=== PATIENT | male | born 1945 | race Caucasian/White ===

== ENCOUNTER → 2017-02-19 | Outpatient (CLI) | payer MEDICARE, OTHER ==
[~2017-02-19] VITALS: Ht 175.3 cm; Wt 126.6 kg
[~2017-02-19] MED LIST: AMLO5TAB5 PO; ASPI-875 PO; ASPI-999 PO; ATOR20TA66 PO; BISO1TAB41 PO; CALC-656 PO; CALC-694 PO; CATHETER FLUSH 10 ML SYR IV PRN; CETI10TA17 PO; CIALIS 20 MG PO; CIPR500T78 PO; CLOP75TA69 PO; CLPD75T PO; FINA5TAB PO; FISH1CAP15 PO; GLUC-113 PO; GLYB2.5T4 PO; HYDR-3454 PO; LISI40TA PO; LSNP20T PO; MULT-974 PO; NIAC1TBM5 PO; OMEG1CAP51 PO; PHEN200T27 PO; REGADENOSON 0.4 MG/5 ML SYR (LEXISCAN) IV ONE; SITA1TBM7 PO; TAMS0.4C9 PO; VIT1CAPS5 PO
[2017-02-19 13:14] VITALS: BP 170/77
[2017-02-19 13:23] VITALS: BP 156/77
[2017-02-19 13:28] VITALS: BP 150/57
[2017-02-19 13:30] VITALS: BP 167/69
[2017-02-19 13:32] VITALS: BP 166/70
--- NOTE | 2017-02-19 21:06 | STRESS TEST ---
DATE OF SERVICE: 02/19/2017 DATE OF SERVICE: 02/19/2017. ORDERING PHYSICIAN: Dr. Peña. PRIMARY CARE PHYSICIAN: Dr. Puente. CLINICAL DIAGNOSIS: Coronary artery disease, hypertension, hyperlipidemia. Baseline images were carried out after injection of 10.71 mCi of technetium-99m Tetrofosmin. This was followed by 0.4 mg regadenoson and 31.2 mCi technetium-99m Tetrofosmin for stress imaging. The electrocardiogram showed sinus rhythm and the electrocardiogram did not change significantly with regadenoson infusion. The patient reported mild shortness of breath with regadenoson which resolved in a few minutes. Review of images at rest and following stress indicates a small apical perfusion defect that is transient. Gated images show normal global left ventricular systolic function with normal regional wall motion. Left ventricular ejection fraction is calculated to be 69%. Left ventricular end-diastolic volume is 80 mL. TID is absent (1.02). CONCLUSIONS: 1. This study indicates a small amount of apical ischemia. 2. No evidence of myocardial infarction. 3. Normal regional wall motion with a calculated ejection fraction of 69%. Job ID: [id number] DocumentID: [id number] Dictated Date: 02/19/2017 15:42:13 Contact Acid Plant Operator Date: 02/19/2017 16:07:34 Dictated By: LIZ PEÑA MD, MA, FACP, FACC,
== END ==
LOC: CARD 11:46
PROVIDERS: ATTEND Internal Medicine Cardiovascular Disease
DX: I25.10 Atherosclerotic heart disease of native coronary artery without angina pectoris (principal); I10 Essential (primary) hypertension; E78.4 Other hyperlipidemia; I65.23 Occlusion and stenosis of bilateral carotid arteries
CPT/HCPCS: 78452; 93017

== ENCOUNTER 2017-02-26 07:56 | Day surgery (SDC) | payer MEDICARE, OTHER ==
[~2017-02-26] VITALS: Ht 175.3 cm; Wt 122.5 kg
[2017-02-26] VITALS (10 sets, daily range): BP systolic 96–177; BP diastolic 44–76
[~2017-02-26 07:56] MED LIST changes: -CATHETER FLUSH 10 ML SYR IV PRN; -REGADENOSON 0.4 MG/5 ML SYR (LEXISCAN) IV ONE
[2017-02-26] MEDS ORDERED: LIDOCAINE 1% INJ 20 ML (XYLOCAINE) VIAL ONE (08:01)
[2017-02-26] MEDS ORDERED: HEParin (CATH LAB) 2,000 ML IV ONE (08:01)
[2017-02-26] MEDS ORDERED: NS IV 1000 ML 1,000 ML ONE (08:01)
[2017-02-26] MEDS ORDERED: NS IV 1000 ML 1,000 ML IV SCH ×2 (08:12→11:35)
[2017-02-26 08:35] LABS: MEAN PLATELET VOLUME 10.1 FL (7.4-10.4); RED BLOOD COUNT 4.99 10^6/uL (4.35-5.85); RED CELL DISTRIBUTION WIDTH 13.3 % (10.0-14.5); WHITE BLOOD COUNT 8.1 10^3/uL (4.3-11.0)
[2017-02-26 08:59] LABS: ALBUMIN 4.3 G/DL (3.2-4.5); CALCIUM 9.8 MG/DL (8.5-10.1); CREATININE SERUM 1.22 MG/DL (0.60-1.30); POTASSIUM 3.6 MMOL/L (3.6-5.0)
[2017-02-26] MEDS ORDERED: GLUC1TAB20 PO (09:17)
[2017-02-26] MEDS ORDERED: ASPI-983 PO (09:17)
[2017-02-26] MEDS ORDERED: OMEG-109 PO (09:17)
[2017-02-26] MEDS ORDERED: METF500T4 PO (09:17)
[2017-02-26] MEDS ORDERED: MULT-851 PO (09:17)
[2017-02-26] MEDS ORDERED: [UNRECOGNIZED DRUG - CODE] PO (09:17)
[2017-02-26] MEDS ORDERED: GLIM4TAB PO (09:17)
[2017-02-26] MEDS ORDERED: CLOP75TA28 PO (09:17)
[2017-02-26 09:20] LABS: PROTHROMBIN TIME PATIENT 13.3 SEC (12.2-14.7)
[2017-02-26] MEDS ORDERED: fentaNYL INJECTION 100 MCG/2 ML AMP ONE (10:30)
[2017-02-26] MEDS ORDERED: MIDAZOLAM 5 MG/5 ML (VERSED) VIAL ONE (10:30)
[2017-02-26] MEDS ORDERED: diphenhydrAMINE 50 MG/ML INJ (BENADRYL) ONE (10:31)
--- NOTE | 2017-02-26 11:35 | Cardiac Procedure Note-CS/ASA ---
Pre-Procedure Note Pre-Op Procedure Note H&P Reviewed The H&P was reviewed, patient examined and no changes noted. Date H&P Reviewed: February 26, 2017 Time H&P Reviewed: 11:00 Conscious Sedation Pre-Proced Time Reviewed: 11:00 ASA Class: 3 Airway Mallampati Classification: (chitimacha appropriate class) I. II. III, IV Lungs Heart ASA score ASA 1: a normal healthy patient ASA 2: a patient with a mild systemic disease (mid diabetes, controlled hypertension, obesity ASA 3: a patient with a severe systemic disease that limits activity (angina , COPD, prior Myocardial infarction) ASA 4: a patient with an incapacitating disease that is a constant threat to life (CHF, renal failure) ASA 5: a moribund patient not expected to survive 24 hrs. (ruptured aneurysm) ASA 6: a declared brain patient whose organs are being harvested. For emergent operations, add the letter E after the classification Grade 2 Sedation Plan: Analgesia, Amnesia, Plan communicated to team members, Discussed options with patient/fam, Discussed risks with patient/fam Note The patient is an appropriate candidate to undergo the planned procedure, sedation, and anesthesia. The patient immediately re-assessed prior to indication. LIZ SMITH MD FACP FAC CCDS February 26, 2017 11:35
--- NOTE | 2017-02-26 11:38 | Discharge Inst-Post CATH ---
Discharge Inst-CATH Post Cardiac Cath D/C Inst Follow Up/Plan F/u with Dr Peña in 2 weeks CARDIAC CATH DISCHARGE INSTRUCTIONS *Hold Metformin for 48 hours post heart cath. ACTIVITY * Go Home directly and rest. * Limit activity of the leg (or wrist if it was used) for 7 days including aerobics, swimming, jogging, bicycling, etc. * Restrict stair-climbing for 7 days if possible, if not, climb up with your non -cath leg, then bring together on the same step. * Avoid lifting, pushing, pulling or excessive movement of the affected extremity for 7 days. * Customary sexual activity may be resumed after 2 days-use caution not to use a position that strains or causes pain to the affected extremity. * No driving for 24 hours. * NO SMOKING. * Avoid straining for bowel movements for 7 days. * Gentle walking on level ground is allowed. * Returning to work will depend on the type of procedure and the results. Your doctor will discuss this with you. CALL YOUR DOCTOR FOR ANY OF THE FOLLOWING: *If bleeding from the puncture site occurs- Apply gentle pressure to site with clean cloth and call your doctor or EMS. * If a knot or lump forms under the skin, increases in size, or causes pain. * If bruising appears to be worsening or moving further down your leg instead of disappearing. * Temperature above 101 F. CARE OF YOUR GROIN INCISION; * Bruising or purple discoloration of the skin near the puncture site is common. * You may shower only, no bathtub bathing for 5 days. Be careful to avoid slipping as your leg may feel stiff. * If a closure device was used on your femoral artery, please see the attached guide regarding care of the device and your leg. * REMOVE the dressing from your groin the next day after your procedure in the shower. CARE OF YOUR WRIST INCISION; * Bruising or purple discoloration of the skin near the puncture site is common. * You may shower. * DO NOT submerge wrist. * Remove dressing in 24 hours. LIZ EPÑA MD FACP [facility] CCDS February 26, 2017 11:38
--- NOTE | 2017-02-26 11:40 | Discharge Inst-Cardiology ---
Discharge Inst-Cardiac Discharge Medications Continued Medications: Amlodipine Besylate (Norvasc) 5 Mg Tablet 5 MG PO DAILY Aspirin (Aspirin EC) 81 Mg Tablet.dr 81 MG PO DAILY, TAB Atorvastatin (Lipitor Tablet) 20 Mg Tablet 20 MG PO HS, TAB Bisoprol/Hydrochlorothiazide (Ziac 10-6.25 Mg Tablet) 1 Tab Tablet 1 TAB PO DAILY Calcium Carbonate/Vitamin D3 (Calcium 600-Vit D3 800 Tab) 1 Each Tablet 1 TAB PO DAILY, TAB Clopidogrel Bisulfate (Clopidogrel) 75 Mg Tablet 75 MG PO HS, TAB Finasteride (Finasteride) 5 Mg Tablet 5 MG PO DAILY, TAB Glimepiride (Glimepiride) 4 Mg Tablet 4 MG PO DAILY, TAB Gluc Roper/Chondro Roper A/Vit C/Mn (Glucosamine Chondroitin Tab) 1 Each Tablet 1 TAB PO DAILY, TAB Lisinopril (Prinivil) 40 Mg Tablet 40 MG PO DAILY Multivits-Minerals/FA/Lycopene (One Daily For Men Tablet) 1 Each Tablet 1 TAB PO DAILY, TAB Belle-3 Fatty Acids/Fish Oil (Fish Oil 1,200 mg Softgel) 1 Each Capsule 1200 MG PO DAILY, CAP Tamsulosin HCl (Flomax) 0.4 Mg Cap.er.24h 0.4 MG PO HS, CAP Vit A/Vit C/Vit E/Zinc/Copper (Preservision Areds Softgel) 1 Each Capsule 1 CAP PO DAILY, CAP Discontinued Medications: Metformin HCl (Metformin HCl) 500 Mg Tablet 500 MG PO DAILY, TAB Patient Instructions Patient Instructions: Resume METFORMIN in the previous home dose on the evening of 02/28/17 LIZ SMITH MD FACP FAC CCDS February 26, 2017 11:40
[2017-02-26] MEDS ORDERED: PATIENT MAY USE OWN MEDS, ALL PO SCH (11:45)
--- NOTE | 2017-02-27 04:19 | CARDIAC CATHETERIZATION ---
DATE OF SERVICE: 02/26/2017 CARDIAC CATHETERIZATION The patient is a 72-year-old gentleman who is known to have coronary artery disease and he has had coronary stenting in 2013. He recently had a myocardial perfusion imaging study that was indicative of apical ischemia. Cardiac catheterization was carried out after having obtained an informed consent. PROCEDURE: He was brought to the cardiac catheterization laboratory in the fasting state. Right groin was prepared and draped in the usual sterile fashion. 1% lidocaine was used for local anesthesia. Modified Seldinger technique was used to advance a 5-Palauan sheath into the right femoral artery. Angiography of the right femoral artery was carried out through a sheath. A 5-Palauan JL4 catheter for left coronary angiography, a 5-Palauan JR4 catheter was used for right coronary angiography. A 5-Palauan pigtail catheter was used for left heart catheterization. A left ventricular angiography was not performed to conserve dye to reduce chances of contrast nephropathy. The pigtail catheter was then pulled back and removed. Mynx was used to achieve hemostasis. He tolerated the procedure well. HEMODYNAMICS: Left ventricular end-diastolic pressure following coronary angiography was 11 mmHg. There was approximately 15 mmHg pressure gradient on pullback across the aortic valve. The ascending aortic pressure is 134/45 with a mean of 71 mmHg. LEFT VENTRICULAR ANGIOGRAPHY: Left ventricular angiography was not performed to conserve dye. CORONARY ANGIOGRAPHY: Left main coronary system does not exhibit significant disease. The left anterior descending artery has mild plaques. A ramus intermedius artery has a widely patent stent in its proximal portion without stent restenosis. Left circumflex artery is small and nondominant and does not have significant disease. Right coronary artery is dominant and has a widely patent stent in its proximal portion without any in stent restenosis. The posterior descending branch of the right coronary artery has approximately 50% ostial stenosis. CONCLUSIONS: 1. Coronary artery disease, relatively mild to moderate, as detailed above. There are patent stents in the right coronary and ramus intermedius arteries. The right coronary stent is Promus Element 2.75 x 32 mm placed in 11/2013. The ramus intermedius stent is Promus Element 2.25 x 16 mm placed in 11/2013. The posterior descending branch of the right coronary artery has approximately 50% ostial stenosis. The rest of the coronaries have mild diffuse plaque. 2. Normal left ventricular end-diastolic pressure. DISCUSSION AND RECOMMENDATIONS: Based on the results of the study, I think it is appropriate to continue a conservative regimen. Risk factor modification has been reviewed. Outpatient follow up is advised. Job ID: [id number] DocumentID: [id number] Dictated Date: 02/26/2017 11:30:06 Broth Mixer Date: 02/26/2017 17:40:02 Dictated By: LIZ SMITH MD, MA, FACP, FACC, MTDD
== END 2017-02-26 15:47 | disposition home or self-care (01) ==
LOC: CATH 07:56
PROVIDERS: ATTEND Internal Medicine Cardiovascular Disease
DX: R94.39 Abnormal result of other cardiovascular function study (principal); I25.10 Atherosclerotic heart disease of native coronary artery without angina pectoris; E11.9 Type 2 diabetes mellitus without complications; E78.5 Hyperlipidemia, unspecified; I10 Essential (primary) hypertension; E66.9 Obesity, unspecified; Z68.39 Body mass index [BMI] 39.0-39.9, adult; Z79.84 Long term (current) use of oral hypoglycemic drugs; Z95.5 Presence of coronary angioplasty implant and graft; Z79.899 Other long term (current) drug therapy
CPT/HCPCS: 36415; 80053; 80061; 85027; 85610; 85730; 87081; 93458

== ENCOUNTER 2018-05-02 17:00 | Outpatient (RCR) | payer MEDICARE, OTHER ==
[~2018-05-02 17:00] MED LIST changes: +ASPI-983 PO; +CLOP75TA28 PO; +GLIM4TAB PO; +GLUC1TAB20 PO; +METF500T5 PO; +MULT-851 PO; +OMEG-109 PO; +[UNRECOGNIZED DRUG - CODE] PO
== END 2018-05-07 | disposition home or self-care (01) ==
LOC: CR3 17:00
PROVIDERS: ATTEND Internal Medicine Cardiovascular Disease
DX: Z29.8 Encounter for other specified prophylactic measures (principal)

== ENCOUNTER → 2018-07-09 | Outpatient (RCR) | payer MEDICARE, OTHER ==
[~2018-07-09] MED LIST changes: +METF-397 PO; -METF500T5 PO
== END | disposition home or self-care (01) ==
LOC: CR3 06-09 13:00
PROVIDERS: ATTEND Internal Medicine Cardiovascular Disease
DX: Z29.8 Encounter for other specified prophylactic measures (principal)

== ENCOUNTER 2018-08-08 13:12 | Outpatient (RCR) | payer MEDICARE, OTHER | END 2018-08-09 | disposition home or self-care (01) | LOC: CR3 13:12 | PROVIDERS: ATTEND Internal Medicine Cardiovascular Disease | DX: Z29.8 Encounter for other specified prophylactic measures (principal) ==

== ENCOUNTER 2018-09-10 15:22 | Outpatient (RCR) | payer MEDICARE, OTHER | END 2018-09-11 | disposition home or self-care (01) | LOC: CR3 15:22 | PROVIDERS: ATTEND Internal Medicine Cardiovascular Disease | DX: Z29.8 Encounter for other specified prophylactic measures (principal) ==

== ENCOUNTER 2018-10-10 15:26 | Outpatient (RCR) | payer MEDICARE, OTHER | END 2018-10-12 | disposition home or self-care (01) | LOC: CR3 15:26 | PROVIDERS: ATTEND Internal Medicine Cardiovascular Disease | DX: Z29.8 Encounter for other specified prophylactic measures (principal) ==

== ENCOUNTER → 2018-11-14 | Outpatient (RCR) | payer MEDICARE, OTHER | END | disposition home or self-care (01) | LOC: CR3 10-15 13:00 | PROVIDERS: ATTEND Internal Medicine Cardiovascular Disease | DX: Z29.8 Encounter for other specified prophylactic measures (principal) ==

== ENCOUNTER → 2018-12-17 | Outpatient (RCR) | payer MEDICARE, OTHER ==
[~2018-12-17] MED LIST changes: -HYDR-3454 PO; +HYDR-3455 PO
== END | disposition home or self-care (01) ==
LOC: CR3 11-17 13:00
PROVIDERS: ATTEND Internal Medicine Cardiovascular Disease
DX: Z29.8 Encounter for other specified prophylactic measures (principal)

== ENCOUNTER 2019-01-16 13:18 | Outpatient (RCR) | payer MEDICARE, OTHER | END 2019-01-17 | disposition home or self-care (01) | LOC: CR3 13:18 | PROVIDERS: ATTEND Internal Medicine Cardiovascular Disease | DX: Z29.8 Encounter for other specified prophylactic measures (principal) ==

== ENCOUNTER → 2019-02-18 | Outpatient (RCR) | payer MEDICARE, OTHER | END | disposition home or self-care (01) | LOC: CR3 01-19 13:00 | PROVIDERS: ATTEND Internal Medicine Cardiovascular Disease | DX: Z29.8 Encounter for other specified prophylactic measures (principal) ==

== ENCOUNTER 2019-03-19 06:00 | Outpatient (RCR) | payer MEDICARE, OTHER | END 2019-03-21 | disposition home or self-care (01) | LOC: CR3 06:00 | PROVIDERS: ATTEND Internal Medicine Cardiovascular Disease | DX: Z29.8 Encounter for other specified prophylactic measures (principal) ==

== ENCOUNTER 2019-05-06 13:19 | Outpatient (RCR) | payer MEDICARE, OTHER | END 2019-05-07 | disposition home or self-care (01) | LOC: CR3 13:19 | PROVIDERS: ATTEND Internal Medicine Cardiovascular Disease | DX: Z29.8 Encounter for other specified prophylactic measures (principal) ==

== ENCOUNTER 2019-06-05 14:43 | Outpatient (RCR) | payer MEDICARE, OTHER | END 2019-06-06 | disposition home or self-care (01) | LOC: CR3 14:43 | PROVIDERS: ATTEND Internal Medicine Cardiovascular Disease | DX: Z29.8 Encounter for other specified prophylactic measures (principal) ==

== ENCOUNTER 2019-07-10 14:19 | Outpatient (RCR) | payer MEDICARE, OTHER | END 2019-07-12 | disposition home or self-care (01) | LOC: CR3 14:19 | PROVIDERS: ATTEND Internal Medicine Cardiovascular Disease | DX: Z29.8 Encounter for other specified prophylactic measures (principal) ==

== ENCOUNTER 2019-07-22 15:02 | Outpatient (RCR) | payer MEDICARE, OTHER | END 2019-08-12 | disposition home or self-care (01) | LOC: CR3 15:02 | PROVIDERS: ATTEND Internal Medicine Cardiovascular Disease | DX: Z29.8 Encounter for other specified prophylactic measures (principal) ==

== ENCOUNTER 2019-09-18 13:16 | Outpatient (RCR) | payer MEDICARE, OTHER ==
[~2019-09-18 13:16] MED LIST changes: -GLIM4TAB PO; +GLIM4TAB3 PO
== END 2019-09-20 | disposition home or self-care (01) ==
LOC: CR3 13:16
PROVIDERS: ATTEND Internal Medicine Cardiovascular Disease
DX: Z29.8 Encounter for other specified prophylactic measures (principal)

== ENCOUNTER → 2019-10-21 | Outpatient (RCR) | payer MEDICARE, OTHER ==
[~2019-10-21] MED LIST changes: +GLIM4TAB PO; -GLIM4TAB3 PO
== END | disposition home or self-care (01) ==
LOC: CR3 09-21 14:00
PROVIDERS: ATTEND Internal Medicine Cardiovascular Disease
DX: Z29.8 Encounter for other specified prophylactic measures (principal)

== ENCOUNTER 2019-11-20 15:50 | Outpatient (RCR) | payer MEDICARE, OTHER ==
[~2019-11-20 15:50] MED LIST changes: -GLIM4TAB PO; +GLIM4TAB3 PO
== END 2019-11-22 | disposition home or self-care (01) ==
LOC: CR3 15:50
PROVIDERS: ATTEND Internal Medicine Cardiovascular Disease
DX: Z29.8 Encounter for other specified prophylactic measures (principal)

== ENCOUNTER → 2019-12-25 | Outpatient (RCR) | payer MEDICARE, OTHER ==
[~2019-12-25] MED LIST changes: -GLIM4TAB3 PO; +GLIM4TAB5 PO
== END | disposition home or self-care (01) ==
LOC: CR3 11-25 14:00
PROVIDERS: ATTEND Internal Medicine Cardiovascular Disease
DX: Z29.8 Encounter for other specified prophylactic measures (principal)

== ENCOUNTER → 2020-04-05 | Outpatient (CLI) | payer MEDICARE, OTHER ==
[~2020-04-05] VITALS: Ht 175 cm; Wt 127.0 kg
[~2020-04-05] MED LIST changes: +CATHETER FLUSH 10 ML SYR IV PRN; +REGADENOSON 0.4 MG/5 ML SYR (LEXISCAN) IV ONE
[2020-04-05 08:53] VITALS: BP 174/62
[2020-04-05 08:56] VITALS: BP 198/53
--- NOTE | 2020-04-05 15:14 | STRESS TEST ---
DATE OF SERVICE: 04/05/2020 RESTING AND POST REGADENOSON TECHNETIUM-99M TETROFOSMIN SPECT CT IMAGING CLINICAL DIAGNOSES: Coronary artery disease, diabetes mellitus, hyperlipidemia, hypertension. Baseline images were carried out after injection of 10.44 mCi of technetium-99m Tetrofosmin. This was followed by 0.4 mg regadenoson and 30.4 mCi of technetium-99m Tetrofosmin for stress imaging. The electrocardiogram showed sinus rhythm at baseline. The electrocardiogram did not change significantly with regadenoson infusion. The patient noted shortness of breath, which resolved in a few minutes after the completion of regadenoson. Review of images at rest and following stress indicates a relatively small inferolateral perfusion defect that appears to be mostly transient. Gated images show normal global left ventricular systolic function with normal regional wall motion. Left ventricular ejection fraction is calculated to be 79%. CONCLUSIONS: 1. This study is suggestive of a small amount of inferolateral ischemia. 2. Normal regional wall motion. 3. Normal global left ventricular systolic function with a calculated ejection fraction of 79%. Job ID: [id number] DocumentID: [id number] Dictated Date: 04/05/2020 15:03:05 Erp Engineer Date: 04/05/2020 15:13:48 Dictated By: LIZ SMITH MD, MA, FACP, FACC,
== END ==
LOC: CARD 07:07
PROVIDERS: ATTEND Internal Medicine Cardiovascular Disease
DX: I25.10 Atherosclerotic heart disease of native coronary artery without angina pectoris (principal); I65.29 Occlusion and stenosis of unspecified carotid artery; E11.9 Type 2 diabetes mellitus without complications; E78.5 Hyperlipidemia, unspecified; I10 Essential (primary) hypertension; M54.5 Low back pain; E66.9 Obesity, unspecified
CPT/HCPCS: 78452; 93017; A9502

== ENCOUNTER → 2020-09-30 | Outpatient (CLI) | payer MEDICARE, OTHER ==
[~2020-09-30] MED LIST changes: +ASPI-1238 PO; -ASPI-983 PO; -CATHETER FLUSH 10 ML SYR IV PRN; -REGADENOSON 0.4 MG/5 ML SYR (LEXISCAN) IV ONE
--- NOTE | 2020-09-30 14:24 | Diagnostic Imaging Report ---
INDICATION: Left breast lump. No prior studies are available for comparison. Unilateral left 2-D and 3-D diagnostic mammography was performed with CAD. There is a lobulated masslike density in the retroareolar left breast. No malignant appearing microcalcifications are seen. Axilla is unremarkable. IMPRESSION: BI-RADS 0 Retroareolar left breast mass. Further evaluation with ultrasound is recommended and will be performed today. ACR BI-RADS Category 0: Incomplete. (Needs additional imaging evaluation). Result letter will be mailed to the patient. Note: At least 10% of breast cancer is not imaged by mammography. Dictated by: Dictated on workstation # [id number]
--- NOTE | 2020-09-30 20:03 | Diagnostic Imaging Report ---
INDICATION: Palpable lump left breast. EXAMINATION: Sonographic interrogation of retroareolar left breast. FINDINGS: Irregular, hypoechoic solid-appearing mass, measuring 1.7 x 1.5 x 1.3 cm. This does show internal vascularity. There is a fatty replaced lymph node in the left axilla, measuring 2.5 x 1.6 cm. No other mass is seen. IMPRESSION: Solid ill-defined hypoechoic mass in retroareolar left breast at the area of palpable abnormality. This is concerning for a breast neoplasm. Tissue sampling is recommended. This would be amenable to ultrasound-guided core biopsy. ACR BI-RADS Category 4: Suspicious abnormality. Result letter will be mailed to the patient. Note: At least 10% of breast cancer is not imaged by mammography. Dictated by: Dictated on workstation # [id number]
== END ==
PROVIDERS: ATTEND Family Medicine
DX: N63.20 Unspecified lump in the left breast, unspecified quadrant (principal)
CPT/HCPCS: 76642; 77065; G0279

== ENCOUNTER → 2020-10-05 | Outpatient (CLI) | payer MEDICARE, OTHER ==
[~2020-10-05] VITALS: Ht 175.3 cm; Wt 118.2 kg
[~2020-10-05] MED LIST changes: +LIDOCAINE 1% INJ 20 ML 20 ML VIAL INJ ONE
--- NOTE | 2020-10-05 11:13 | Diagnostic Imaging Report ---
INDICATION: Left breast mass. Patient presents for ultrasound-guided biopsy. DETAILS OF THE PROCEDURE: The patient was brought to the sonographic suite and placed on the table in the supine position. Ultrasound imaging of the left breast was performed to evaluate for an appropriate entry site. The left breast was then prepped and draped in the usual sterile fashion. A small amount of 1% lidocaine was utilized for local anesthesia. A total of three passes was made into the irregular hypoechoic mass in the retroareolar left breast utilizing 14-gauge Achieve needles. Core biopsies were obtained. Next, a marker clip was deployed within the mass. Hemostasis was obtained using manual compression. The patient tolerated the procedure well and left the Department in stable condition. IMPRESSION: Successful ultrasound guided core biopsy of the solid retroareolar left breast mass. Pathology results are currently pending. Dictated by: Dictated on workstation # [id number]
== END ==
LOC: RAD 09:12
PROVIDERS: ATTEND Family Medicine
DX: N63.20 Unspecified lump in the left breast, unspecified quadrant (principal)
CPT/HCPCS: 19083; A4648

== ENCOUNTER → 2020-10-18 | Outpatient (CLI) | payer MEDICARE, OTHER ==
[~2020-10-18] MED LIST changes: -LIDOCAINE 1% INJ 20 ML 20 ML VIAL INJ ONE
--- NOTE | 2020-10-19 09:28 | Diagnostic Imaging Report ---
INDICATION: Male left breast carcinoma, initial staging. TECHNIQUE: Serum blood glucose level at the time of injection is 139 mg/dL. Patient was administered 15.4 mCi F-18 FDG intravenously in the right antecubital location and PET imaging was performed from the top of the skull to mid thighs. Noncontrast CT was also performed for attenuation correction and anatomic correlation. COMPARISON: No prior PET/CT studies are available for comparison. FINDINGS: There is symmetric activity throughout the brain. Soft tissues of the neck are unremarkable. No mediastinal or hilar hypermetabolism is identified. No pulmonary parenchymal hypermetabolism is identified. Known left breast mass is again noted. There is physiologic activity throughout the GI and tracts of the abdomen and pelvis. No suspicious hypermetabolic foci are identified. IMPRESSION: Unremarkable PET/CT study. No suspicious region of hypermetabolism is identified. Dictated by: Dictated on workstation # [id number]
== END ==
LOC: RAD 12:45
PROVIDERS: ATTEND Internal Medicine Hematology & Oncology
DX: C50.922 Malignant neoplasm of unspecified site of left male breast (principal)
CPT/HCPCS: 78815; A9552

== ENCOUNTER 2020-10-25 05:32 | Outpatient (RCR) | payer MEDICARE, OTHER ==
[~2020-10-25] VITALS: Ht 167 cm; Wt 118.0 kg
[~2020-10-25 05:32] MED LIST changes: +METF-399 PO
== END 2020-10-25 09:45 | disposition home or self-care (01) ==
LOC: PREOP 05:32
PROVIDERS: ATTEND Surgery
DX: Z01.818 Encounter for other preprocedural examination (principal); F14.21 Cocaine dependence, in remission; C50.922 Malignant neoplasm of unspecified site of left male breast; Z20.822 Contact with and (suspected) exposure to COVID-19
CPT/HCPCS: 87635

== ENCOUNTER 2020-10-27 07:01 | Day surgery (SDC) | payer MEDICARE, OTHER ==
--- NOTE | 2020-10-22 07:20 | HISTORY AND PHYSICAL ---
DATE OF SERVICE: ADMISSION DATE: 10/27/2020. ATTENDING PRIMARY CARE PHYSICIAN: Dr. Christophe Puente. HISTORY: The patient is a 75-year-old male referred over to us for a biopsy-proven left breast infiltrating ductal cancer. He reported noticing a mild nipple retraction approximately 2 months ago; however, did not feel a palpable lesion. This came approximately 1 month later. A mammogram was done, which was inconclusive and this was followed by an ultrasound, which was suspicious and this was then followed by an ultrasound-guided biopsy, which did come back the infiltrating ductal cancer, which is estrogen receptor and progesterone receptor positive. He just today underwent a PET scan. He does also report a strong family history of cancers with his mother being diagnosed with the disease at age 89. However, he also has a daughter that was diagnosed with breast cancer at age 50. Another daughter with leukemia and father diagnosed with testicular cancer. This likely indicates a potential form of familial disposition and likely should require genetic testing. He also does have a history of coronary artery disease and is status post cardiac catheterization and stent placement x2 in 2013. PAST MEDICAL HISTORY: Hypertension, diabetes, hypercholesterolemia, coronary artery disease, nephrolithiasis, benign prostatic hypertrophy. PAST SURGICAL HISTORY: Cystoscopy and bladder stone removal, right sinus cyst excision, cardiac catheterization and stent placement x2 in 2013, umbilical hernia repair in 2010, colonoscopy x3 with the last one being normal. ALLERGIES: No known drug allergies. MEDICATIONS: Amlodipine 10 mg daily, aspirin 81 mg daily, atorvastatin 20 mg daily, bisoprolol 10 mg daily, Plavix 75 mg daily, finasteride 5 mg daily, glimepiride 4 mg daily, glucosamine daily, hydrochlorothiazide 12.5 mg daily, lisinopril 40 mg daily, metformin 1000 mg b.i.d., sildenafil 100 mg daily, tamsulosin 0.4 mg daily. SOCIAL HISTORY: Previous smoker, quit in 1983, 20 pack years. Recent and past history of alcohol with six beers daily; however, quit in 12/2019. VITAL SIGNS: Stable, currently 255 pounds, height 5 feet 9 inches. REVIEW OF SYSTEMS: Well-nourished male in no acute distress. He is not experiencing any shortness of breath or difficulty breathing. No chest pain, palpitations, diaphoresis. No nausea, vomiting, no diarrhea or constipation. No fever, chills, no recent inadvertent weight loss. All other review of systems negative. PHYSICAL EXAMINATION: CHEST: Clear. Good breath sounds bilaterally. HEART: Regular, no murmurs. EXTREMITIES: No lower extremity edema, negative Homans sign. HEENT: No scleral icterus. NECK: No cervical lymphadenopathy. ABDOMEN: Soft, nontender, nondistended. BREASTS: There is a palpable lesion along the left breast, which is movable. There is no axillary adenopathy. No right breast lesion. ASSESSMENT AND PLAN: A 75-year-old male with left breast infiltrating ductal carcinoma, which is estrogen and progesterone receptor positive. We will get cardiac clearance and proceed with a sentinel lymph node biopsy as well as a simple mastectomy including the nipple areolar complex if the sentinel lymph node is negative; however, if this is positive, we will then proceed with a modified radical mastectomy. Job ID: [id number] DocumentID: [id number] Dictated Date: 10/18/2020 16:22:17 Loan Representative Date: 10/18/2020 17:07:24 Dictated By: BILLY JAIMES MD
[2020-10-27] VITALS (11 sets, daily range): BP systolic 144–166; BP diastolic 59–82
[~2020-10-27] VITALS: Ht 175 cm; Wt 118.0 kg
[2020-10-27] MEDS ORDERED: ceFAZolin 2 GM IV Premixed 50 ML IV ONE (07:15)
[2020-10-27] MEDS ORDERED: CATHETER FLUSH 10 ML SYR IV PRN (07:30)
--- NOTE | 2020-10-27 08:44 | Progress Note-Pre Operative ---
Pre-Operative Progress Note H&P Reviewed The H&P was reviewed, patient examined and no changes noted. Date Seen by Provider: Oct 27, 2020 Time Seen by Provider: 08:40 Date H&P Reviewed: Oct 27, 2020 Time H&P Reviewed: 08:30 Pre-Operative Diagnosis: left breast cancer NICOLE ERWIN APRN Oct 27, 2020 08:44
[2020-10-27] MEDS ORDERED: ONDANSETRON 4 MG/2 ML (SDV) Z0FRAN IVP PRN ×2 (08:45→15:30)
[2020-10-27] MEDS ORDERED: ACETAMINOPHEN 325 MG TABLET PO PRN (08:45)
[2020-10-27] MEDS ORDERED: morphine INJ 10 MG/ML 1ML (SYR OR VIAL) IVP PRN (08:45)
[2020-10-27] MEDS ORDERED: HYDROcodone/APAP 5 MG/325 MG (LORTAB) TAB PO ONE (08:45)
[2020-10-27] MEDS ORDERED: HYDR-4227 PO (08:47)
--- NOTE | 2020-10-27 08:47 | Discharge Inst-Surgical ---
D/C Lap Instructions-KIDO Reconcile Patient Problems Problems Reviewed?: Yes New, Converted, or Re-Newed RX: RX on Chart Follow Up Appt in 2 weeks Activity as tolerated No driving for 24 hours No driving while on pain medications Incentive Spirometry use every 2 hours while awake Regular Diet Symptoms to Report: Fever over 101 degree F, Nausea/Vomiting Infection Signs and Symptoms to report: Increased redness, Foul odor of wound, Increased drainage Bathing instructions: May shower Operative Area Clean/Dry; Keep incision clean/dry If any problems/questions: Contact your physician or go to Emergency Room NICOLE ERWIN APRN Oct 27, 2020 08:47
--- NOTE | 2020-10-27 10:01 | Diagnostic Imaging Report ---
Lymphoscintigraphy INDICATION: Left breast carcinoma The study was performed following administration of 1.1 mCi of 99 technetium sulfur colloid in 4 divided doses in the left periareolar region. 2 spot films were obtained. There is uptake of the radiotracer by 2 lymph nodes in the left axilla. The skin of the lymph nodes was marked. IMPRESSION: There has been a successful lymphoscintigraphy procedure. Dictated by: Dictated on workstation # [id number]
[2020-10-27] MEDS ORDERED: METHYLENE BLUE 0.5% (PROVAYBLUE) 50 mg/10 ml vial IV ONE (10:48)
[2020-10-27] MEDS ORDERED: LIDOCAINE/EPI 1%-1:100,000 (XYLOCAINE) 50 ML ONE (10:48)
[2020-10-27] MEDS ORDERED: MIDAZOLAM 2 MG/2 ML (VERSED) VIAL ONE (11:42)
[2020-10-27] MEDS ORDERED: MIDAZOLAM 2 MG/2 ML (VERSED) VIAL IVP ONE (11:45)
[2020-10-27] MEDS: LACTATED RINGERS 1,000 ML IV PRN ×2 (11:49→13:53)
[2020-10-27] MEDS ORDERED: SEVOFLURANE (ULTANE) 15 ML INHAL SOLN ONE ×6 (12:14→15:21)
[2020-10-27] MEDS ORDERED: proPOfol 200 MG/20 ML (DIPRIVAN) VIAL IV ONE (12:14)
[2020-10-27] MEDS ORDERED: LIDOCAINE PF 2% 5 ML (XYLOCAINE) VIAL ONE (12:14)
[2020-10-27] MEDS ORDERED: fentaNYL INJECTION 100 MCG/2 ML AMP ONE (12:14)
[2020-10-27] MEDS ORDERED: ONDANSETRON 4 MG/2 ML (SDV) Z0FRAN ONE (12:14)
[2020-10-27] MEDS ORDERED: HYDROmorphone 2 MG/ML VIAL (DILAUDID) ONE (13:41)
[2020-10-27] MEDS ORDERED: GLYCOPYRROLATE 0.2 MG/ML (ROBINUL) 2 ML VIAL ONE (14:04)
--- NOTE | 2020-10-27 14:57 | Progress Note-Post Operative ---
Post-Operative Progess Note Surgeon (s)/Outside Salesperson (s) Surgeon BILLY JAIMES MD Outside Salesperson: [employer] SENIOR LABORATORY TECHNICIAN Pre-Operative Diagnosis left breast cancer Post-Operative Diagnosis same Procedure & Operative Findings Date of Procedure 10/27/20 Procedure Performed/Findings left breast subdermal injection, left axillary deep sentinel lymph node bx, left simple mastectomy. pectoralis major myorrhaphy. Anesthesia Type general LMA and perctoralis nerve block. Estimated Blood Loss Estimated blood loss (mL): 100ml Specimens/Packing Specimens Removed left breast and sentinel node. BILLY JAIMES MD Oct 27, 2020 14:57
[2020-10-27] MEDS ORDERED: HYDROmorphone 2 MG/ML VIAL (DILAUDID) IV ONE (15:30)
[2020-10-27] MEDS ORDERED: morphine INJ 10 MG/ML 1ML (SYR OR VIAL) IVP ONE (15:30)
--- NOTE | 2020-10-27 16:31 | OPERATIVE REPORT ---
DATE OF SERVICE: 10/27/2020 ATTENDING PRIMARY CARE PHYSICIAN: Dr. Christophe Puente. PREOPERATIVE DIAGNOSIS: Left breast infiltrating ductal carcinoma. POSTOPERATIVE DIAGNOSIS: Left breast infiltrating ductal carcinoma. PROCEDURE: Left breast subdermal injection, deep axillary sentinel lymph node biopsy, simple mastectomy, left pectoralis major myorrhaphy. SURGEON: Tang Castro MD CASING TESTER: Henok Jacome APRN ANESTHESIA: General laryngeal mask airway. ESTIMATED BLOOD LOSS: 100 mL. FINDINGS: [place] lymph node negative. DISPOSITION: The patient tolerated the procedure well. INDICATIONS: The patient is a 75-year-old male who was referred over to us for a biopsy-proven left breast infiltrating ductal carcinoma. He reported mild nipple retraction two months ago. He did not feel a palpable lesion, which then came about 1 month later. A mammogram was done, which was inconclusive and this was followed by an ultrasound, which was suspicious and this was followed by an ultrasound-guided biopsy, which came back as an infiltrating ductal cancer, which was estrogen receptor and progesterone receptor positive. He does have a strong family history of cancers with his mother being diagnosed with the disease at age 89. He also has a daughter with a history of breast cancer at age 50. Another daughter with leukemia. Father with testicular cancer, likely indicating some potential form of familial disposition and may require genetic testing. DESCRIPTION OF PROCEDURE: The patient was brought to the operating room, laid supine on the table. After adequate IV pain and sedative medications and general endotracheal intubation, subdermal injection of isosulfan blue in 4 quadrants of the nipple areolar complex was performed and massaged in for 15 minutes. The chest and neck as well as upper extremity were prepped and draped in standard surgical fashion. An oblique skin incision was made in the axilla using a 15 blade. The subcutaneous tissue and clavipectoral fascia were then opened using electrocautery. We then proceeded with blunt dissection, identifying the sentinel lymph node through the blue dye as well as the nuclear counter. This was excised using electrocautery with visualization of good hemostasis. The sentinel node counts was [id number] with a background being 291, which is less than 10% and consistent with a sentinel lymph node. This was sent to pathology for frozen section and preliminarily negative for malignancy. We then proceeded with skin incision in an elliptical fashion including the entire nipple areolar complex. We then proceeded with superior and inferior flap formation using electrocautery and towel clamps for retraction. We proceeded with the simple mastectomy with the clavicle as our superior border, the sternum as our medial border and the insertion site of the rectus abdominis muscle as our he inferior border and the latissimus dorsi as our lateral border. We then proceeded with medial to lateral dissection taking the anterior pectoralis fascia with us during the process. [place] through this dissection, it appeared that we did take a significant wedge of the pectoralis major muscle and this was shaved off the breast tissue and completed our breast dissection and sent the specimen to pathology. Good hemostasis was observed. With the pectoralis major muscle flap, a myorrhaphy was performed by using 0 chromic horizontal mattress sutures until a durable repair was identified. Good hemostasis was observed. A 19-Polish Asa-Arteaga drain was placed and the subcutaneous tissue was then reapproximated using 3-0 Vicryl interrupted suture. The skin was closed using 4-0 Monocryl running subcuticular suture. Before this, the wound bed was irrigated with sterile water. The patient tolerated the procedure well. We will start IV normal pain medication as well as a clear liquid diet. Once he is tolerating clears, has good pain control with oral pain medications, ambulating well, we will discharge him home. He will be instructed to do no heavy lifting or exertion for the next two weeks as well as to wear some form of compression garment on the chest for the next two weeks as well. Job ID: [id number] DocumentID: [id number] Dictated Date: 10/27/2020 15:05:19 Supervisor [employer] Date: 10/27/2020 16:30:46 Dictated By: TANG CASTRO MD [facility]
[2020-10-27] MEDS ORDERED: HYDROcodone/APAP 5 MG/325 MG (LORTAB) TAB ONE (16:33)
--- NOTE | 2020-11-01 09:16 | Anesthesia-General Post-Op ---
General Patient Condition Mental Status/LOC: Same as Preop Cardiovascular: Satisfactory Nausea/Vomiting: Absent Respiratory: Satisfactory Pain: Controlled Complications: Absent Post Op Complications Complications None Follow Up Care/Instructions Patient Instructions None needed. Anesthesia/Patient Condition Patient Condition Post-dated progress note: Patient was seen on 10-27-20 at approximately 1615 and he was doing well, no complaints, stable vital signs, no apparent adverse anesthesia problems. ANDIE DURAN DO Nov 01, 2020 09:16
== END 2020-10-27 17:45 ==
LOC: SDC 07:01 → EDSTATUS 10:30 → SDC 17:45
PROVIDERS: ATTEND Surgery
DX: D05.12 Intraductal carcinoma in situ of left breast (principal); I10 Essential (primary) hypertension; E11.40 Type 2 diabetes mellitus with diabetic neuropathy, unspecified; E78.00 Pure hypercholesterolemia, unspecified; I25.10 Atherosclerotic heart disease of native coronary artery without angina pectoris; N40.0 Benign prostatic hyperplasia without lower urinary tract symptoms; E66.01 Morbid (severe) obesity due to excess calories; Z68.38 Body mass index [BMI] 38.0-38.9, adult; Z79.84 Long term (current) use of oral hypoglycemic drugs; Z79.899 Other long term (current) drug therapy; Z79.82 Long term (current) use of aspirin; Z87.891 Personal history of nicotine dependence; Z87.442 Personal history of urinary calculi; Z95.5 Presence of coronary angioplasty implant and graft
CPT/HCPCS: 19303; 38525; 78195; 82962; 87081; A9541; 88305; 88307; 88331; 88342

== ENCOUNTER 2020-12-07 11:02 | Outpatient (RCR) | payer MEDICARE, OTHER ==
[2020-11-14 10:42] LABS: BASOPHILS # (AUTO) 0.1 10^3/uL (0.0-0.1); BASOPHILS % (AUTO) 1 % (0-10); EOSINOPHILS # (AUTO) 0.1 10^3/uL (0.0-0.3); EOSINOPHILS % (AUTO) 2 % (0-10); HEMATOCRIT 41 % (40-54); HEMOGLOBIN 13.7 g/dL (13.3-17.7); LYMPHOCYTES % (AUTO) 42 % (12-44); MEAN CORPUSCULAR HEMOGLOBIN 30 pg (25-34); MEAN CORPUSCULAR HGB CONC 34 g/dL (32-36); MEAN CORPUSCULAR VOLUME 90 fL (80-99); MEAN PLATELET VOLUME 9.8 fL (9.0-12.2); MONOCYTES # (AUTO) 0.7 10^3/uL (0.0-1.0); MONOCYTES % (AUTO) 7 % (0-12); NEUTROPHILS # (AUTO) 4.6 10^3/uL (1.8-7.8); NEUTROPHILS % (AUTO) 48 % (42-75); PLATELET COUNT 229 10^3/uL (130-400); WHITE BLOOD COUNT 9.4 10^3/uL (4.3-11.0)
[2020-11-14 11:05] LABS: ALANINE AMINOTRANSFERASE 37 U/L (0-55); ALBUMIN 4.1 GM/DL (3.2-4.5); ALKALINE PHOSPHATASE 55 U/L (40-136); BUN/CREATININE RATIO 10; CALCIUM 9.4 MG/DL (8.5-10.1); CARBON DIOXIDE 25 MMOL/L (21-32); CHLORIDE 104 MMOL/L (98-107); CREATININE SERUM 1.16 MG/DL (0.60-1.30); GFR ESTIMATED > 60; GLUCOSE 190 MG/DL (70-105); POTASSIUM 3.9 MMOL/L (3.6-5.0); SODIUM 142 MMOL/L (135-145); TOTAL PROTEIN 6.9 GM/DL (6.4-8.2)
[2020-12-07 10:43] LABS: BASOPHILS # (AUTO) 0.1 10^3/uL (0.0-0.1); BASOPHILS % (AUTO) 1 % (0-10); EOSINOPHILS # (AUTO) 0.2 10^3/uL (0.0-0.3); EOSINOPHILS % (AUTO) 2 % (0-10); HEMATOCRIT 41 % (40-54); HEMOGLOBIN 13.8 g/dL (13.3-17.7); LYMPHOCYTES # (AUTO) 4.3 10^3/uL (1.0-4.0); LYMPHOCYTES % (AUTO) 43 % (12-44); MEAN CORPUSCULAR HEMOGLOBIN 30 pg (25-34); MEAN CORPUSCULAR HGB CONC 34 g/dL (32-36); MEAN CORPUSCULAR VOLUME 89 fL (80-99); MEAN PLATELET VOLUME 9.7 fL (9.0-12.2); MONOCYTES # (AUTO) 0.5 10^3/uL (0.0-1.0); MONOCYTES % (AUTO) 5 % (0-12); NEUTROPHILS # (AUTO) 4.8 10^3/uL (1.8-7.8); NEUTROPHILS % (AUTO) 48 % (42-75); PLATELET COUNT 203 10^3/uL (130-400)
[2020-12-07 11:00] LABS: ALANINE AMINOTRANSFERASE 31 U/L (0-55); ALKALINE PHOSPHATASE 42 U/L (40-136); BILIRUBIN,TOTAL 0.9 MG/DL (0.1-1.0); BUN/CREATININE RATIO 11; CARBON DIOXIDE 22 MMOL/L (21-32); CHLORIDE 104 MMOL/L (98-107); CREATININE SERUM 1.17 MG/DL (0.60-1.30); GFR ESTIMATED > 60; GLUCOSE 197 MG/DL (70-105); POTASSIUM 3.8 MMOL/L (3.6-5.0); SODIUM 139 MMOL/L (135-145); TOTAL PROTEIN 6.6 GM/DL (6.4-8.2)
[~2020-12-07 11:02] MED LIST changes: +HYDR-4227 PO
== END 2021-02-12 | disposition home or self-care (01) ==
LOC: ONC 11:02
PROVIDERS: ATTEND Internal Medicine Hematology & Oncology
DX: C50.922 Malignant neoplasm of unspecified site of left male breast (principal); Z90.12 Acquired absence of left breast and nipple; Z98.890 Other specified postprocedural states; Z80.3 Family history of malignant neoplasm of breast
CPT/HCPCS: 80053; 85025; G0463; 99213; 99214

== ENCOUNTER 2021-02-15 10:48 | Outpatient (RCR) | payer MEDICARE, OTHER ==
[2021-02-15 11:06] LABS: BASOPHILS # (AUTO) 0.1 10^3/uL (0.0-0.1); BASOPHILS % (AUTO) 1 % (0-10); EOSINOPHILS # (AUTO) 0.1 10^3/uL (0.0-0.3); EOSINOPHILS % (AUTO) 2 % (0-10); HEMATOCRIT 43 % (40-54); HEMOGLOBIN 14.6 g/dL (13.3-17.7); LYMPHOCYTES # (AUTO) 3.7 10^3/uL (1.0-4.0); LYMPHOCYTES % (AUTO) 42 % (12-44); MEAN CORPUSCULAR HEMOGLOBIN 30 pg (25-34); MEAN CORPUSCULAR HGB CONC 34 g/dL (32-36); MEAN CORPUSCULAR VOLUME 88 fL (80-99); MEAN PLATELET VOLUME 9.6 fL (9.0-12.2); MONOCYTES # (AUTO) 0.5 10^3/uL (0.0-1.0); MONOCYTES % (AUTO) 5 % (0-12); NEUTROPHILS # (AUTO) 4.5 10^3/uL (1.8-7.8); NEUTROPHILS % (AUTO) 50 % (42-75); PLATELET COUNT 183 10^3/uL (130-400)
[2021-02-15 11:20] LABS: ALBUMIN 3.9 GM/DL (3.2-4.5); CHLORIDE 104 MMOL/L (98-107); POTASSIUM 4.1 MMOL/L (3.6-5.0); SODIUM 140 MMOL/L (135-145)
[2021-02-15 11:21] LABS: CALCIUM 8.9 MG/DL (8.5-10.1)
[2021-02-15 11:22] LABS: GLUCOSE 164 MG/DL (70-105)
[2021-02-15 11:23] LABS: CARBON DIOXIDE 25 MMOL/L (21-32); TOTAL PROTEIN 6.6 GM/DL (6.4-8.2)
[2021-02-15 11:26] LABS: ALKALINE PHOSPHATASE 41 U/L (40-136); CREATININE SERUM 1.14 MG/DL (0.60-1.30); GFR ESTIMATED > 60
[2021-02-15 11:27] LABS: BUN/CREATININE RATIO 10
[2021-02-15 11:29] LABS: ALANINE AMINOTRANSFERASE 33 U/L (0-55)
== END 2021-05-12 09:25 | disposition home or self-care (01) ==
LOC: ONC 10:48
PROVIDERS: ATTEND Internal Medicine Hematology & Oncology
DX: C50.922 Malignant neoplasm of unspecified site of left male breast (principal); E78.5 Hyperlipidemia, unspecified; E66.9 Obesity, unspecified; E11.9 Type 2 diabetes mellitus without complications; I10 Essential (primary) hypertension; I25.10 Atherosclerotic heart disease of native coronary artery without angina pectoris; F41.9 Anxiety disorder, unspecified; Z90.12 Acquired absence of left breast and nipple; Z80.3 Family history of malignant neoplasm of breast; Z79.899 Other long term (current) drug therapy; Z79.82 Long term (current) use of aspirin; Z79.84 Long term (current) use of oral hypoglycemic drugs; Z79.02 Long term (current) use of antithrombotics/antiplatelets; Z87.891 Personal history of nicotine dependence; Z79.818 Long term (current) use of other agents affecting estrogen receptors and estrogen levels; Z17.0 Estrogen receptor positive status [ER+]
CPT/HCPCS: 80053; 85025; G0463; 99213

== ENCOUNTER → 2021-02-15 | Outpatient (RCR) | payer MEDICARE, OTHER | END | disposition home or self-care (01) | LOC: CR3 01-16 14:50 | PROVIDERS: ATTEND Internal Medicine Cardiovascular Disease | DX: Z29.8 Encounter for other specified prophylactic measures (principal) ==

== ENCOUNTER 2021-03-17 17:14 | Outpatient (RCR) | payer MEDICARE, OTHER | END 2021-03-19 | disposition home or self-care (01) | LOC: CR3 17:14 | PROVIDERS: ATTEND Internal Medicine Cardiovascular Disease | DX: Z29.8 Encounter for other specified prophylactic measures (principal) ==

== ENCOUNTER 2021-04-14 16:16 | Outpatient (RCR) | payer MEDICARE, OTHER | END 2021-04-19 | disposition home or self-care (01) | LOC: CR3 16:16 | PROVIDERS: ATTEND Internal Medicine Cardiovascular Disease | DX: Z29.8 Encounter for other specified prophylactic measures (principal) ==

== ENCOUNTER 2021-04-27 05:44 | Outpatient (CLI) | payer MEDICARE, OTHER ==
[~2021-04-27] VITALS: Ht 175.3 cm; Wt 116.4 kg
== END 2021-04-27 14:20 | disposition home or self-care (01) ==
LOC: PREOP 05:44
PROVIDERS: ATTEND Internal Medicine
DX: Z01.818 Encounter for other preprocedural examination (principal)

== ENCOUNTER 2021-05-05 08:36 | Day surgery (SDC) | payer MEDICARE, OTHER ==
--- NOTE | 2021-04-27 14:44 | HISTORY AND PHYSICAL ---
DATE OF SERVICE: COLONOSCOPY HISTORY AND PHYSICAL HISTORY OF PRESENT ILLNESS: The patient is a 76-year-old white male referred by Dr. Puente for surveillance colonoscopy. He last underwent colonoscopy in 2011. He has a history of adenomatous colonic polyps and a family history for colon cancer, in this case being his mother, who was diagnosed in her 50s. The patient reports since last saw him, he was diagnosed with left breast cancer in 10/2000, underwent left mastectomy with no evidence for metastatic disease and no complications post-surgery. He reports that he has been feeling well and voices no complaints. He has noted no bright red blood per rectum, change in bowel habit, abdominal pain or melena. PAST SURGICAL HISTORY: Other than mastectomies of the right maxillary sinus surgery for what sounds like an obstructing retention cyst by Dr. Davison. He underwent lithotripsy for a large bladder stone with passage several years ago and reports history of BPH. PAST MEDICAL HISTORY: Significant for coronary artery disease. He underwent stent placement x2 in 2013, no problems since. He continues on aspirin and Plavix with no reported bleeding problems. MEDICATIONS ON ADMISSION: Include amlodipine 10 mg daily, 81 mg aspirin daily, 20 mg of atorvastatin daily, bisoprolol 10 mg daily, clopidogrel 75 mg daily, finasteride 5 mg daily, glimepiride 4 mg daily, hydrochlorothiazide 12.5 mg daily, lisinopril 40 mg daily, metformin 1000 mg b.i.d., sildenafil 100 mg tablet as needed, tamoxifen 20 mg daily, tamsulosin 0.4 mg each evening. PAST MEDICAL HISTORY: Significant for hypertension, hyperlipidemia, coronary artery disease and the aforementioned breast cancer. SOCIAL HISTORY: The patient is retired. No past smoking history. No significant alcohol consumption. FAMILY HISTORY: Pertinent for mother, who was diagnosed with colon cancer, he believes in her 50s. PHYSICAL EXAMINATION: GENERAL: Reveals a pleasant white male, who appeared to be in no acute distress. VITAL SIGNS: Blood pressure 158/60, weight 256 pounds. HEENT: Unremarkable. Sclerae nonicteric. CHEST: Clear. CARDIOVASCULAR: Reveals a regular rate and rhythm. Soft I to II/ systolic ejection murmur heard best at left lower sternal border without evidence for pulsus, parvus or tardus. No S3 or S4 noted. ABDOMEN: Soft, supple, diastasis recti noted. The patient is obese, no tenderness to palpation. Bowel sounds positive. No mass or organomegaly noted. EXTREMITIES: Reveal no cyanosis, clubbing or edema. ASSESSMENT AND PLAN: The patient is set up for surveillance colonoscopy due to family history of colon cancer as well as past history for adenomatous colonic polyps. He will be holding aspirin and Plavix one week prior to the procedure. Continue his other medications unchanged. Prep instructions with the Suprep kit were given and questions were answered. Electronic medical record was reviewed. I thank you for the referral of this pleasant gentleman. Job ID: [id number] DocumentID: [id number] Dictated Date: 04/25/2021 20:39:50 Assignment Desk Assistant Date: 04/25/2021 21:23:55 Dictated By: BLANCO JOHNS MD
[~2021-05-05] VITALS: Ht 157.5 cm; Wt 71.7 kg
[2021-05-05] MEDS ORDERED: LACTATED RINGERS 1,000 ML IV ONE (08:41)
[2021-05-05] MEDS ORDERED: LACTATED RINGERS 1,000 ML IV STA (08:42)
[2021-05-05] MEDS ORDERED: LIDOCAINE JELLY 2% 6 ML SYRINGE MM PRN (08:45)
[2021-05-05 08:56] VITALS: BP 137/90
--- NOTE | 2021-05-05 09:31 | Pre-Op Note & Conscious Sedat ---
Pre-Operative Progress Note H&P Reviewed The H&P was reviewed, patient examined and no changes noted. Date H&P Reviewed: May 05, 2021 Time H&P Reviewed: 09:31 Conscious Sedation Pre-Proced ASA Score 2 For ASA 3 and 4: Consider anesthesia and medical clearance. Also, for patients with a history of failed moderate sedation consider anesthesia. Airway Lungs Heart ASA score ASA 1: a normal healthy patient ASA 2: a patient with a mild systemic disease (mid diabetes, controlled hypertension, obesity ASA 3: a patient with a severe systemic disease that limits activity (angina, COPD, prior Myocardial infarction) ASA 4: a patient with an incapacitating disease that is a constant threat to life (CHF, renal failure) ASA 5: a moribund patient not expected to survive 24 hrs. (ruptured aneurysm) ASA 6: a declared brain- patient whose organs are being harvested. For emergent operations, add the letter E after the classification Mallampati Classification Grade 2 Sedation Plan Analgesia, Amnesia, Plan communicated to team members, Discussed options with patient/fam, Discussed risks with patient/fam The patient is an appropriate candidate to undergo the planned procedure, sedation, and anesthesia. The patient immediately re-assessed prior to indication. BLANCO JOHNS MD May 05, 2021 09:31
[2021-05-05] MEDS ORDERED: PROPOFOL INJECTION 50 ML IV ONE (09:56)
[2021-05-05 10:34] VITALS: BP 136/62
[2021-05-05 10:40] VITALS: BP 135/63
[2021-05-05 11:00] VITALS: BP 113/67
[2021-05-05 11:45] VITALS: BP 113/67
--- NOTE | 2021-05-05 17:34 | OPERATIVE REPORT ---
DATE OF SERVICE: COLONOSCOPY SUMMARY INDICATION FOR THE PROCEDURE: Screening colonoscopy and possible family history for colon cancer with personal history of breast cancer. DESCRIPTION OF PROCEDURE: The patient was placed in the left lateral decubitus position. Prior to undergoing colonoscopy, a digital rectal evaluation was performed. Anal sphincter tone was normal and the perianal reflexes intact. The prostate was normal in size and anodular on digital inspection. The colonoscope was then inserted into the rectum and under direct visualization advanced to the cecum. The cecum was identified by identification of the ileocecal valve and cecal strap. Photographic documentation was obtained. Quality of prep was fair. FINDINGS: There was no evidence for internal or external hemorrhoids. Present in the mid rectum was a 1 to 2 mm sessile hyperplastic-appearing rectal polyp. Cold polypectomy was performed and the polyp was submitted for histopathology. There was no subsequent blood loss. Mild diverticular disease confined to the sigmoid colon was present without evidence for diverticulitis. No other sigmoid colonic abnormalities were appreciated. The descending colon, splenic flexure, transverse colon, hepatic flexure, ascending colon and cecum were unremarkable. ASSESSMENT: One diminutive hyperplastic-appearing polyp was removed from the mid rectum via cold forceps with no subsequent blood loss. Mild diverticular disease confined to the sigmoid colon was present without evidence for diverticulitis. Considering male breast cancer and the fact that the patient did undergo genetic testing for which there was some comment about possible slight increased risk for colon cancer, we will defer to Dr. Hoskins in regard to future screening colonoscopy, taking age and medical comorbidities into consideration. I thank you for the referral of this pleasant gentleman. Job ID: [id number] DocumentID: [id number] Dictated Date: 05/05/2021 11:45:29 [place] Table Assembler Date: 05/05/2021 17:34:19 Dictated By: BLANCO JOHNS MD
--- NOTE | 2021-05-05 18:49 | Anesthesia-General Post-Op ---
MAC Patient Condition Mental Status/LOC: Same as Preop Cardiovascular: Satisfactory Nausea/Vomiting: Absent Respiratory: Satisfactory Pain: Controlled Complications: Absent Post Op Complications Complications None Follow Up Care/Instructions Patient Instructions None needed. Anesthesiology Discharge Order Discharge Order Patient is doing well, no complaints, stable vital signs, no apparent adverse anesthesia problems. No complications reported per nursing. BRIE HELM CRNA May 05, 2021 18:49
== END 2021-05-05 11:45 | disposition home or self-care (01) ==
LOC: ENDO 08:36
PROVIDERS: ATTEND Internal Medicine
DX: Z12.11 Encounter for screening for malignant neoplasm of colon (principal); K62.1 Rectal polyp; K57.30 Diverticulosis of large intestine without perforation or abscess without bleeding; I25.10 Atherosclerotic heart disease of native coronary artery without angina pectoris; I10 Essential (primary) hypertension; E78.5 Hyperlipidemia, unspecified; Z79.899 Other long term (current) drug therapy; Z79.82 Long term (current) use of aspirin; Z85.3 Personal history of malignant neoplasm of breast
CPT/HCPCS: 82947; 88305

== ENCOUNTER 2021-05-12 15:10 | Outpatient (RCR) | payer MEDICARE, OTHER | END 2021-05-21 | disposition home or self-care (01) | LOC: CR3 15:10 | PROVIDERS: ATTEND Internal Medicine Cardiovascular Disease | DX: Z29.8 Encounter for other specified prophylactic measures (principal) ==

== ENCOUNTER → 2021-06-05 | Outpatient (CLI) | payer MEDICARE, OTHER ==
[2021-06-05 10:38] LABS: BASOPHILS # (AUTO) 0.1 10^3/uL (0.0-0.1); BASOPHILS % (AUTO) 1 % (0-10); EOSINOPHILS # (AUTO) 0.1 10^3/uL (0.0-0.3); EOSINOPHILS % (AUTO) 2 % (0-10); HEMATOCRIT 39 % (40-54); HEMOGLOBIN 13.2 g/dL (13.3-17.7); LYMPHOCYTES # (AUTO) 3.1 10^3/uL (1.0-4.0); LYMPHOCYTES % (AUTO) 47 % (12-44); MEAN CORPUSCULAR HEMOGLOBIN 31 pg (25-34); MEAN CORPUSCULAR HGB CONC 34 g/dL (32-36); MEAN CORPUSCULAR VOLUME 92 fL (80-99); MEAN PLATELET VOLUME 9.3 fL (9.0-12.2); MONOCYTES # (AUTO) 0.4 10^3/uL (0.0-1.0); MONOCYTES % (AUTO) 6 % (0-12); NEUTROPHILS # (AUTO) 2.9 10^3/uL (1.8-7.8); NEUTROPHILS % (AUTO) 44 % (42-75); PLATELET COUNT 166 10^3/uL (130-400); WHITE BLOOD COUNT 6.6 10^3/uL (4.3-11.0)
[2021-06-05 10:54] LABS: ALBUMIN 3.7 GM/DL (3.2-4.5); BILIRUBIN,TOTAL 1.2 MG/DL (0.1-1.0); CALCIUM 9.1 MG/DL (8.5-10.1); CREATININE SERUM 1.16 MG/DL (0.60-1.30); TOTAL PROTEIN 6.2 GM/DL (6.4-8.2)
== END ==
LOC: ONC 10:29
PROVIDERS: ATTEND Internal Medicine Hematology & Oncology
DX: C50.922 Malignant neoplasm of unspecified site of left male breast (principal); I10 Essential (primary) hypertension; I25.10 Atherosclerotic heart disease of native coronary artery without angina pectoris; E11.9 Type 2 diabetes mellitus without complications; E78.5 Hyperlipidemia, unspecified; F41.9 Anxiety disorder, unspecified; Z90.12 Acquired absence of left breast and nipple; Z79.810 Long term (current) use of selective estrogen receptor modulators (SERMs); Z98.890 Other specified postprocedural states; Z80.3 Family history of malignant neoplasm of breast
CPT/HCPCS: 80053; 85025; G0463; 99213

== ENCOUNTER → 2021-06-21 | Outpatient (RCR) | payer MEDICARE, OTHER | END | disposition home or self-care (01) | LOC: CR3 05-22 15:22 | PROVIDERS: ATTEND Internal Medicine Cardiovascular Disease | DX: Z29.8 Encounter for other specified prophylactic measures (principal) ==

== ENCOUNTER 2021-07-21 14:14 | Outpatient (RCR) | payer MEDICARE, OTHER | END 2021-07-23 | LOC: CR3 14:14 | PROVIDERS: ATTEND Internal Medicine Cardiovascular Disease | DX: Z29.8 Encounter for other specified prophylactic measures (principal) ==

== ENCOUNTER → 2021-08-23 | Outpatient (RCR) | payer MEDICARE, OTHER | END | disposition home or self-care (01) | LOC: CR3 07-24 14:24 | PROVIDERS: ATTEND Internal Medicine Cardiovascular Disease | DX: Z29.8 Encounter for other specified prophylactic measures (principal) ==

== ENCOUNTER 2021-09-22 14:14 | Outpatient (RCR) | payer MEDICARE, OTHER | END 2021-09-24 | disposition home or self-care (01) | LOC: CR3 14:14 | PROVIDERS: ATTEND Internal Medicine Cardiovascular Disease | DX: Z29.8 Encounter for other specified prophylactic measures (principal) ==

== ENCOUNTER 2021-10-04 09:19 | Outpatient (RCR) | payer MEDICARE, OTHER ==
[2021-10-04 09:26] LABS: BASOPHILS # (AUTO) 0.1 10^3/uL (0.0-0.1); BASOPHILS % (AUTO) 1 % (0-10); EOSINOPHILS # (AUTO) 0.1 10^3/uL (0.0-0.3); EOSINOPHILS % (AUTO) 2 % (0-10); HEMATOCRIT 40 % (40-54); HEMOGLOBIN 13.5 g/dL (13.3-17.7); LYMPHOCYTES # (AUTO) 4.2 10^3/uL (1.0-4.0); LYMPHOCYTES % (AUTO) 49 % (12-44); MEAN CORPUSCULAR HEMOGLOBIN 30 pg (25-34); MEAN CORPUSCULAR HGB CONC 34 g/dL (32-36); MEAN CORPUSCULAR VOLUME 90 fL (80-99); MEAN PLATELET VOLUME 9.6 fL (9.0-12.2); MONOCYTES # (AUTO) 0.5 10^3/uL (0.0-1.0); MONOCYTES % (AUTO) 6 % (0-12); NEUTROPHILS # (AUTO) 3.7 10^3/uL (1.8-7.8); NEUTROPHILS % (AUTO) 43 % (42-75); PLATELET COUNT 177 10^3/uL (130-400); WHITE BLOOD COUNT 8.7 10^3/uL (4.3-11.0)
[2021-10-04 09:53] LABS: ALBUMIN 3.7 GM/DL (3.2-4.5); BILIRUBIN,TOTAL 0.9 MG/DL (0.1-1.0); CALCIUM 8.8 MG/DL (8.5-10.1); CREATININE SERUM 1.23 MG/DL (0.60-1.30); POTASSIUM 3.8 MMOL/L (3.6-5.0); TOTAL PROTEIN 6.3 GM/DL (6.4-8.2)
== END 2021-10-13 | disposition home or self-care (01) ==
LOC: ONC 09:19
PROVIDERS: ATTEND Internal Medicine Hematology & Oncology
DX: C50.922 Malignant neoplasm of unspecified site of left male breast (principal); I10 Essential (primary) hypertension; I25.10 Atherosclerotic heart disease of native coronary artery without angina pectoris; E11.9 Type 2 diabetes mellitus without complications; E78.5 Hyperlipidemia, unspecified; E66.9 Obesity, unspecified; Z79.810 Long term (current) use of selective estrogen receptor modulators (SERMs); Z80.3 Family history of malignant neoplasm of breast; Z90.12 Acquired absence of left breast and nipple
CPT/HCPCS: 80053; 85025; G0463; 99213

== ENCOUNTER 2021-11-10 15:11 | Outpatient (RCR) | payer MEDICARE, OTHER | END 2021-11-12 | disposition home or self-care (01) | LOC: CR3 15:11 | PROVIDERS: ATTEND Internal Medicine Cardiovascular Disease | DX: Z29.8 Encounter for other specified prophylactic measures (principal) ==

== ENCOUNTER → 2021-12-13 | Outpatient (RCR) | payer MEDICARE, OTHER | END | disposition home or self-care (01) | LOC: CR3 11-13 14:38 | PROVIDERS: ATTEND Internal Medicine Cardiovascular Disease | DX: Z29.8 Encounter for other specified prophylactic measures (principal) ==

== ENCOUNTER 2021-12-27 09:15 | Outpatient (RCR) | payer MEDICARE, OTHER ==
[2021-12-27 09:32] LABS: BASOPHILS # (AUTO) 0.1 10^3/uL (0.0-0.1); BASOPHILS % (AUTO) 1 % (0-10); EOSINOPHILS # (AUTO) 0.1 10^3/uL (0.0-0.3); EOSINOPHILS % (AUTO) 1 % (0-10); HEMATOCRIT 42 % (40-54); HEMOGLOBIN 14.3 g/dL (13.3-17.7); LYMPHOCYTES # (AUTO) 5.1 10^3/uL (1.0-4.0); LYMPHOCYTES % (AUTO) 50 % (12-44); MEAN CORPUSCULAR HEMOGLOBIN 30 pg (25-34); MEAN CORPUSCULAR HGB CONC 34 g/dL (32-36); MEAN CORPUSCULAR VOLUME 90 fL (80-99); MEAN PLATELET VOLUME 9.6 fL (9.0-12.2); MONOCYTES # (AUTO) 0.5 10^3/uL (0.0-1.0); MONOCYTES % (AUTO) 5 % (0-12); NEUTROPHILS # (AUTO) 4.4 10^3/uL (1.8-7.8); NEUTROPHILS % (AUTO) 42 % (42-75); PLATELET COUNT 177 10^3/uL (130-400); WHITE BLOOD COUNT 10.3 10^3/uL (4.3-11.0)
[2021-12-27 09:51] LABS: ALBUMIN 3.9 GM/DL (3.2-4.5); BILIRUBIN,TOTAL 0.9 MG/DL (0.1-1.0); CALCIUM 8.9 MG/DL (8.5-10.1); CREATININE SERUM 1.23 MG/DL (0.60-1.30); POTASSIUM 3.9 MMOL/L (3.6-5.0); TOTAL PROTEIN 6.4 GM/DL (6.4-8.2)
== END 2022-01-11 | disposition home or self-care (01) ==
LOC: ONC 09:15
PROVIDERS: ATTEND Internal Medicine Hematology & Oncology
DX: C50.929 Malignant neoplasm of unspecified site of unspecified male breast (principal); I10 Essential (primary) hypertension; I25.10 Atherosclerotic heart disease of native coronary artery without angina pectoris; E11.9 Type 2 diabetes mellitus without complications; E78.5 Hyperlipidemia, unspecified
CPT/HCPCS: 80053; 85025

== ENCOUNTER → 2021-12-27 | Outpatient (CLI) | payer MEDICARE, OTHER | LOC: ONC 09:48 | PROVIDERS: ATTEND Urology | DX: C50.929 Malignant neoplasm of unspecified site of unspecified male breast (principal); I10 Essential (primary) hypertension; I25.10 Atherosclerotic heart disease of native coronary artery without angina pectoris; E11.9 Type 2 diabetes mellitus without complications; E78.5 Hyperlipidemia, unspecified | CPT/HCPCS: 84153; 84403; G0463; 99213 ==

== ENCOUNTER 2022-02-09 15:36 | Outpatient (RCR) | payer MEDICARE, OTHER | END 2022-02-10 | disposition home or self-care (01) | LOC: CR3 15:36 | PROVIDERS: ATTEND Internal Medicine Cardiovascular Disease | DX: Z29.8 Encounter for other specified prophylactic measures (principal) ==

== ENCOUNTER 2022-03-09 15:22 | Outpatient (RCR) | payer MEDICARE, OTHER ==
[~2022-03-09 15:22] MED LIST changes: -GLUC1TAB20 PO; +GLUC1TAB21 PO
== END 2022-04-12 | disposition home or self-care (01) ==
LOC: CR3 15:22
PROVIDERS: ATTEND Internal Medicine Cardiovascular Disease
DX: Z29.8 Encounter for other specified prophylactic measures (principal)

== ENCOUNTER 2022-03-28 10:28 | Outpatient (RCR) | payer MEDICARE, OTHER | END 2022-04-12 | disposition home or self-care (01) | LOC: ONC 10:28 | PROVIDERS: ATTEND Internal Medicine Hematology & Oncology | DX: C50.929 Malignant neoplasm of unspecified site of unspecified male breast (principal); I10 Essential (primary) hypertension; I25.10 Atherosclerotic heart disease of native coronary artery without angina pectoris; E11.9 Type 2 diabetes mellitus without complications; E78.5 Hyperlipidemia, unspecified; E66.9 Obesity, unspecified | CPT/HCPCS: 99213 ==